=== PATIENT | female | born 2005 ===

== ENCOUNTER 2023-04-28 16:00 | Outpatient (CLI) | payer SELFPAY | END 2023-04-28 16:01 | disposition left against medical advice (07) | LOC: EMS 16:00 | DX: E11.65 Type 2 diabetes mellitus with hyperglycemia (principal); T85.694A Other mechanical complication of insulin pump, initial encounter; T38.3X6A Underdosing of insulin and oral hypoglycemic [antidiabetic] drugs, initial encounter; R11.0 Nausea; R51.9 Headache, unspecified; R42 Dizziness and giddiness; R00.0 Tachycardia, unspecified; Z79.4 Long term (current) use of insulin ==